=== PATIENT | female | born 1990 | race American Indian/Alaskan Native ===

== ENCOUNTER 2021-03-21 12:07 | Emergency (ER) | payer SELFPAY ==
[2021-03-21 12:35] VITALS: BP 139/86
--- NOTE | 2021-03-21 13:03 | Emergency Department Report ---
ED Female HPI - General Chief complaint: Vaginal Bleeding Stated complaint: HEAVY BLEEDING (ON CYCLE) Time Seen by Provider: 03/21/21 13:01 Source: patient Mode of arrival: Ambulatory Limitations: No Limitations - History of Present Illness Initial comments: 30 YO COMES IN WITH PROLONGED VAG BLEEDING LMP 9-18 STOPPED FOR 2 WEEKS THEN STARTED AGAIN NOT CONCERNED FOR PREG NO PAIN STATES BLEEDING IS HEAVY AND SHE IS CONCERNED NO CP NO SOB NO DYSURIA NO FEVER OR CHILLS NO VAG DISCHARGE NO ABD OR BACK PAIN MD Complaint: vaginal bleeding -: Gradual, days(s) Severity: mild Quality: cramping Consistency: constant Improves with: none Worsens with: none Are you Now?: No Associated Symptoms: vaginal bleeding. denies: vaginal discharge, abdominal pain, nausea/vomiting, fever/chills, headaches, loss of appetite, dysuria, hematuria, rash, seizure, shortness of breath, syncope, weakness - Related Data Sexually active: Yes Allergies Allergy/AdvReac Type Severity Reaction Status Date / Time No Known Allergies Allergy Verified 03/21/21 12:32 ED Review of Systems ROS: Stated complaint: HEAVY BLEEDING (ON CYCLE) Other details as noted in HPI Comment: All other systems reviewed and negative ED Past Medical Hx - Past Medical History Previous Medical History?: No - Surgical History Past Surgical History?: No - Family History Family history: no significant - Social History Smoking Status: Never Smoker Substance Use Type: None ED Physical Exam - General Limitations: No Limitations General appearance: alert, in no apparent distress - Head Head exam: Present: atraumatic, normocephalic - Eye Eye exam: Present: normal appearance - ENT ENT exam: Present: mucous membranes moist - Neck Neck exam: Present: normal inspection - Respiratory Respiratory exam: Present: normal lung sounds bilaterally. Absent: respiratory distress - Cardiovascular Cardiovascular Exam: Present: regular rate, normal rhythm. Absent: systolic murmur, diastolic murmur, rubs, gallop - GI/Abdominal GI/Abdominal exam: Present: soft, normal bowel sounds - Extremities Exam Extremities exam: Present: normal inspection - Back Exam Back exam: Present: normal inspection - Neurological Exam Neurological exam: Present: alert, oriented X3 - Psychiatric Psychiatric exam: Present: normal affect, normal mood - Skin Skin exam: Present: warm, dry, intact, normal color. Absent: rash ED Course Vital Signs 03/21/21 12:32 Temperature 98 F Pulse Rate 87 Respiratory 16 Rate Blood Pressure 139/86 [Right] O2 Sat by Pulse 96 Oximetry ED Medical Decision Making - Lab Data Result diagrams: 03/21/21 13:14 03/21/21 13:14 - Medical Decision Making Labs 03/21/21 03/21/21 03/21/21 13:14 13:14 13:14 WBC 6.7 RBC 4.11 Hgb 13.2 Hct 39.3 MCV 96 MCH 32 MCHC 34 RDW 14.2 Plt Count 182 Sodium 138 Potassium 4.7 Chloride 103.4 Carbon Dioxide 24 Anion Gap 15 BUN 12 Creatinine 0.8 Estimated GFR > 60 BUN/Creatinine Ratio 15 Glucose 91 Calcium 9.5 HCG, Quant < 2 Vital Signs 03/21/21 12:32 Temperature 98 F Pulse Rate 87 Respiratory 16 Rate Blood Pressure 139/86 [Right] O2 Sat by Pulse 96 Oximetry PREG NEG HGB 13 VS NORMAL NO TACHYCARDIA/HYPOTENSION AMBULATORY WITH NO COMPLAINTS DC HOME WITH DC PLAN OF CARE - INCLUDING OBGYN. PT VERBALIZES UNDERSTANDING OF PLAN OF CARE - Differential Diagnosis RO PREG/ANEMIA Critical care attestation.: If time is entered above; I have spent that time in minutes in the direct care of this critically ill patient, excluding procedure time. ED Disposition Clinical Impression: Vaginal bleeding Disposition: 01 HOME / SELF CARE / HOMELESS Is pt being admited?: No Does the pt Need Aspirin: No Condition: Stable Instructions: Abnormal Uterine Bleeding Additional Instructions: STAY WELL HYDRATED MOTRIN OR TYLENOL FOR PAIN PREG NEG CBC NORMAL FOLLOW UP WITH OBGYN REFERRAL BELOW Referrals: ABDOULAYE HOLLINGSWORTH MD [Staff Physician] - 3-5 Days Time of Disposition: 14:22
[2021-03-21 13:40] LABS: Hematocrit 39.3 % (30.3-42.9); Hemoglobin 13.2 gm/dl (10.1-14.3); Mean Corpuscular HGB Conc 34 % (30-34); Mean Corpuscular Volume 96 fl (79-97); Platelet Count 182 K/mm3 (140-440); Red Blood Count 4.11 M/mm3 (3.65-5.03); Red Cell Distribution Width 14.2 % (13.2-15.2)
[2021-03-21 13:53] LABS: BUN/Creatinine Ratio 15; Blood Urea Nitrogen 12 mg/dL (7-17); Calcium 9.5 mg/dL (8.4-10.2); Hemolysis Index 6
== END 2021-03-21 14:30 | disposition home or self-care (01) ==
LOC: ED 12:07
DX: N93.9 Abnormal uterine and vaginal bleeding, unspecified (principal)
CPT/HCPCS: 36415; 80048; 84702; 85027; 99283